=== PATIENT | female | born 1955 | race Caucasian/White ===

== ENCOUNTER → 2024-01-10 | Outpatient (CLI) | payer MEDICARE | LOC: MAMMO 11:00 | DX: Z12.31 Encounter for screening mammogram for malignant neoplasm of breast (principal) ==

== ENCOUNTER → 2024-05-01 | Outpatient (CLI) | payer MEDICARE | LOC: RAD 14:57 → MAMMO 15:00 | DX: Z13.820 Encounter for screening for osteoporosis (principal); Z78.0 Asymptomatic menopausal state ==